=== PATIENT | female | born 1970 | race Caucasian/White ===

== ENCOUNTER 2025-01-16 15:30 | Outpatient (AMB) | payer OTHER, SELFPAY ==
--- NOTE | 2025-01-16 15:32 | A.OFFVIS_ITS ---
VS Expanded 01/16/25 15:53 BP 108/60 Blood Pressure Location Rt brachial Blood Pressure Position Sitting Pulse 73 Pulse Source Pulse Oximeter Temp 96.8 F Temperature Source Temporal Artery Scan Pulse Oximetry 97 Oxygen Delivery Method Room Air Height 5 ft 3.5 in Weight 141 lb 3.2 oz BMI 24.6 Body Fat % 32.2 Body Fat Mass 45.4 Fat Free Mass 95.6 Visceral Fat Rating 7.0 Body Water % 48.0 Body Water Mass 67.6 Muscle Mass/Score 90.8 Basal Metabolic Rate/Score 1,295 Intake Visit Reasons: (OV) Panniculectomy Consult Instrument Lens Generator Required: No Allergies erythromycin base [ERYTHROMYCIN BASE] Allergy (Unknown, Unverified 06/03/20 18:00) GASTRITIS From BUSPAR Allergy (Unknown, Uncoded 06/03/20 18:00) SPACEY From PHENERGAN Allergy (Unknown, Uncoded 06/03/20 18:00) AGITATED Medication List - Last Reconciled 01/16/25 by MARCUS Anguiano atorvastatin 40 mg PO BEDTIME B-complex with vitamin C 1 cap PO DAILY biotin mcg PO celecoxib (Celebrex) 200 mg PO DAILY cetirizine (Zyrtec) 10 mg PO DAILY PRN citalopram 10 mg PO DAILY citalopram 20 mg PO DAILY ferrous sulfate 27 mg PO DAILY hydrochlorothiazide 12.5 mg PO DAILY losartan 50 mg PO BID metformin 1,000 mg PO DAILY multivitamin 1 tab PO DAILY omeprazole 20 mg PO DAILY pregabalin 150 mg PO BID tirzepatide (Mounjaro) 2.5 mg subcut QWEEK HPI Comments Details: 54-year-old female presents to the office today for possible panniculectomy. She has a history of sleeve gastrectomy performed by Dr. Ramon at [facility] on 07/15/2015. She has not seen anybody specifically for bariatric follow-up since 2018. She reports her greatest weight was 217 lb, lowest weight is current weight and this has been stable over the last year. She is concerned about her abdominal pannus. This does cause rashes, worse in the warmer months. She has not been prescribed any specific medications but has treated this with jabq-oah-cmrsliu corn starch. The impact of the excess skin on her ADLs is significant. She has a negative impact with sexual intercourse due to the excess skin. She also requires increased hygiene practices due to the excess skin, requiring showering to sometimes 3 times a day depending upon the weather. She additionally has abdominal discomfort due to the excess skin with exercise such as jogging or jumping. Her ADLs are also affected negatively by way of ill fitting clothing. Weight today is 141.2 with a BMI of 24.6. meal plan: 25 gm tajik yogurt w berries 1/2 sandwich 4 oz chicken and 1 c veg drinking 40 oz water daily exercise plan: PF treadmill 3 d per week, 300-400 shy low impact weight training. [facility] Surgical History (Updated 01/16/25 @ 16:23 by MARCUS Anguiano) Hx of tubal ligation Hx of hysterectomy Hx of foot surgery Hx of shoulder surgery Hx of knee surgery H/O hernia repair S/P gastric sleeve procedure Family History Mother No problems noted. Father No problems noted. Social History Alcohol intake: current Alcohol intake frequency: holidays/special occasions only Patient Tobacco Use Status: Never used Tobacco Physical Exam Const General: cooperative, healthy appearing and no acute distress Orientation/consciousness: patient oriented x3 HEENT Head: Yes normal to inspection Ears: hearing grossly normal bilaterally General nose exam: Normal external nose present Face and sinus: Yes normal facial exam Eyes General: appearance normal, both eyes and all related structures Resp Effort & Inspection: normal respiratory effort Auscultation: clear to auscultation bilaterally Cardio Rate: regular rate Rhythm: regular rhythm Heart sounds: S1 normal heart sound present and S2 normal heart sound present GI Inspection: Yes normal to inspection, No distended and Yes obesity Palpation (GI): Soft to palpation, nontender and no guarding Auscultation: normal bowel sounds Skin Other: Grade 2 pannus of the abdomen General skin exam: no rashes or lesions noted Neuro General: patient oriented x3 Extrem General: No edema Psych Appearance: grossly normal Mental Status: mental status grossly normal Speech and movement: Normal speech and movement present Affect: normal affect Attitude: cooperative Assessment & Plan Assessment & Plan (1) Excess skin: Code(s): L98.7 - Excessive and redundant skin and subcutaneous tissue Category: Medical Plan: Pleasant 54-year-old female with grade 2 pannus of the abdomen secondary to excessive weight loss after sleeve gastrectomy performed in June 2015. She has lost 75.8 lb or 34.9% total body weight loss. As a result she has excess skin of the abdomen negatively impacting her ADLs as well as requiring excess hygiene, difficulty with clothing fitting. She has had intermittent rashes in the past, worse with warmer weather. These have been treated with axyd-vwb-xmrgnik corn starch although there has been recurrence. While she does not have a rash today, she will alert the office if she does get a rash so that we may treat it accordingly. We will schedule follow-up appointment in March, advised to call sooner should she have any issues or concerns. (2) S/P laparoscopic sleeve gastrectomy: Code(s): Z98.84 - Bariatric surgery status Category: Surgical Plan: Patient is following a meal plan that she has been doing for several years. 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 She has been at a stable weight per her report for the last year. She will continue the meal plan as she is doing and recommendation was for increasing exercise to 5 days per week. We will have her follow-up in March as above.
--- OUTSIDE RECORDS SUMMARY | 2025-01-16 15:33 | XMS_ITS ---
[facility] Name [facility] Organization Unknown Care Team Organization Name Specialty Phone Email Start Date End [facility] Jewel Ferrell Primary Care 11/02/2023
--- OUTSIDE RECORDS SUMMARY | 2025-01-16 15:33 | XMS_ITS | Encounter Summary ---
Author Organization [facility] Address [address] [place] [address] Care Team Providers Care Negative Turner Apprentice Name Role Phone Jewel Ferrell MD Primary Care Provider Un available Encounter Details Date Type Department Care Team (Late st Contact Info) Description 11/02/2023 Scanned Document [facility] Physicians Department of Physiatry [place] [address] [place] [address] Magda Yabrra MD [address] [place] [address] Social History Tobacco Use Types Packs/Day Years Used Date Smoking Tobacco: Never Assessed Comments Unknown Sex and Gender Information Value Date Recorded Sex Assigned at Female 11/23/2023 10:36 AM EST Legal Sex Female 12:05 PM EDT Gender Identity Female 11/23/2023 10:36 AM EST Sexual Orientation Not on file documented as of this encounter Plan of Treatment Not on file documented as of this encounter Visit Diagnoses Not on filedocumented in this encounter Care Teams Negative Turner Apprentice Relationship Specialty Start Date End Date Jewel Ferrell MD PCP - General documented as of this encounter
--- OUTSIDE RECORDS SUMMARY | 2025-01-16 15:33 | XMS_ITS | Encounter Summary ---
Author Organization [facility] Address [address] [place] [address] Care Team Providers Care Watch Manufacturing Supervisor Name Role Phone Jewel Ferrell MD Primary Care Provider Un available Encounter Details Date Type Department Care Team (Late st Contact Info) Description 11/02/2023 Scanned Document [facility] Phys[facility] Department of Physiatry [place] [address] [place] [address] Magda Ybarra MD [address] [place] [address] Social History Tobacco Use Types Packs/Day Years [...] on filedocumented in this encounter Care Teams Watch Manufacturing Supervisor Relationship Specialty Start Date End Date Jewel Ferrell MD PCP - General documented as of this encounter
--- OUTSIDE RECORDS SUMMARY | 2025-01-16 15:33 | XMS_ITS | Encounter Summary ---
Author Organization [facility] Address [address] [place] [address] Care Team Providers Care Auto Motor Mechanic Name Role Phone Jewel Ferrell MD Primary Care Provider Un available Encounter Details Date Type Department Care Team (Late st Contact Info) Description 11/02/2023 Scanned Document [facility] Physicians Department of Physiatry [place] [address] [place] [address] Magda Ybarra MD [address] [place] [address] Social History Tobacco Use Types Packs/Day Years [...] on filedocumented in this encounter Care Teams Auto Motor Mechanic Relationship Specialty Start Date End Date Jewel Ferrell MD PCP - General documented as of this encounter
--- OUTSIDE RECORDS SUMMARY | 2025-01-16 15:33 | XMS_ITS | Clinical Summary ---
Author Organization [facility] Address [address] [place] [address] Care Team Providers Care Lithographic Platemaker Name Role Phone Jewel Ferrell MD Primary Care Provider Un available Social History Tobacco Use Types Packs/Day Years Used Date Smoking Tobacco: Never Assessed Comments Unknown Sex and Gender Information Value Date Recorded Sex Assigned at Female 11/23/2023 10:36 AM EST Legal Sex Female 12:05 PM EDT Gender Identity Female 11/23/2023 10:36 AM EST Sexual Orientation Not on file Plan of Treatment Health Maintenance Due Date Last Done Comments Hepatitis C Virus Screening 1968 HIV Screening 1981 DTaP/Tdap/Td Vaccines (1 - Tdap) 1987 Hepatitis B Vaccines (1 of 3 - 19+ 3-dose series) 10/1986 Pneumococcal Vaccines 50+ (1 of 1 - PCV) 2018 Zoster (Shingles) Vaccine (1 of 2) 2018 COVID-19 Vaccine ( season) 2024 Care Teams Lithographic Platemaker Relationship Specialty Start Date End Date Jewel Ferrell MD PCP - General
--- OUTSIDE RECORDS SUMMARY | 2025-01-16 15:33 | XMS_ITS | Clinical Summary ---
Author Organization [facility] Address [address] [place] [address] Phone Care Team Providers Care Financial Service Representative Name Role Phone Jewel Ferrell MD Primary Care Provider [phone] Allergies Active Allergy Reactions Criticality Noted Date Comments Buspirone Hcl 06/08/2005 confusion Erythromycin GI intolerance 03/27/2008 gastritis Fludrocortisone 05/05/2024 Hydrocodone 11/10/2016 vomiting Lisinopril Other Medium 07/31/2008 cough Morphine 11/10/2016 nausea Medications celecoxib (CeleBREX) 200 mg capsule Take 1 capsule by mouth once daily 90 capsule 1 024 Active biotin 5 mg capsule Take 1 capsule (5 mg total) by mouth 1 (one) time each day. Active cetirizine (ZyrTEC) 10 mg chewable tablet Chew 1 tablet (10 mg total) daily. Active cholecalciferol (VITAMIN D-3) 50 mcg (2,000 unit) capsule Active citalopram (CeleXA) 20 mg tablet Take 1 tablet (20 mg total) by mouth 1 (one) time each day. Take 1 tab daily along with citalopram 10 mg for a total of 30 mg daily 90 tablet 1 025 Active citalopram (CeleXA) 10 mg tablet Take 1 tablet (10 mg total) by mouth 1 (one) time each day. Take 1 tab daily along with citalopram 20 mg for a total of 30 mg daily 90 each 025 Active atorvastatin (LIPITOR) 40 mg tablet Take 1 tablet (40 mg total) by mouth 1 (one) time each day. 90 tablet 1 Active metFORMIN XR (GLUCOPHAGE-XR) 500 mg 24 hr tablet Take 1 tablet (500 mg total) by mouth 2 (two) times a day with meals. Do not crush, chew, or split. 025 Active ferrous sulfate ER (SLOW IRON) 140 mg (45 mg iron) tablet Take 1 tablet (45 mg total) by mouth 1 (one) time each day with breakfast. Do not crush, chew, or split. 025 Active omeprazole (PriLOSEC) [address] capsule Take 1 capsule (20 mg total) by mouth 1 (one) time each day. Do not crush or chew. 90 each 1 025 Active pregabalin (LYRICA) 150 mg capsule Take 1 capsule (150 mg total) by mouth 2 (two) times a day. Max Daily Amount: 300 mg 180 each 025 Active losartan (COZAAR) 50 mg tablet Take 1 tablet by mouth twice daily 180 tablet 1 025 Active hydroCHLOROthiazi de (MICROZIDE) 12.5 mg capsule Take 1 capsule by mouth once daily 90 capsule 1 025 Active Mounjaro 2.5 mg/0.5 mL injectionIndicati ons:Diabetes mellitus type 2 with neurological manifestations (CMS/HCC V24, CMS/HCC V28) INJECT 1 PEN (2.5 MG TOTAL) SUBCUTANEOUSLY ONCE EVERY 7 DAYS 2 mL 025 Active FreeStyle David 3 Plus Sensor deviceIndications :Diabetes mellitus type 2 with neurological manifestations (CMS/HCC V24, CMS/HCC V28) USE FOR CONTINUOUS BLOOD GLUCOSE MONITORING DAILY 6 each 025 Active hydroCHLOROthiazi de (MICROZIDE) 12.5 mg capsule Take 1 capsule by mouth once daily 90 capsule 024 04/07/ 2025 Discontinued blood-glucose sensor (FreeStyle David 3 Plus Sensor) deviceIndications :Diabetes mellitus type 2 with neurological manifestations ([facility] V24, [facility] V28) 1 EA continuously. Box = Kit = EA 6 each 025 2024 Discontinued tirzepatide (Mounjaro) 2.5 mg/0.5 mL injectionIndicati ons:Diabetes mellitus type 2 with neurological manifestations ([facility] V24, [facility] V28) Inject 0.5 mL (2.5 mg total) under the skin every 7 (seven) days. 2 mL 025 2024 Discontinued Active Problems Problem Noted Date Diagnosed Date Cervical spondylosis with myelopathy and radicul opathy 07/26/2022 COVID-19 03/08/2021 Overview (07/09/2024): 03/07/21 Snoring 08/11/2019 Overview (07/09/2024): 07/2019 Home Sleep Study did not reveal sleep apnea or nocturnal hypoxia. HPV in female 01/16/2018 Overview (07/09/2024): High risk HPV positive on paps in 2016 and 2017. 16 and 18 always negative. Colpo 01/15/18 with biopsy at 12:00 NEGATIVE Diabetes mellitus type 2 wit h neurological manifestations ([facility] V24, [facility] V28) 08/29/2017 Pannus, abdominal 08/24/2017 Neuropathy 03/27/2016 Ovarian cyst 12/31/2014 Major depression in partial remission ([facility] V 24) 05/05/2014 Sleep apnea 05/23/2013 Overview (07/09/2024): mild overall, severe in REM with some uriah hypoventilation improved after weight loss Microalbuminuria 02/02/2011 Vitamin D deficiency 04/14/2010 Dysplastic nevi 07/09/2009 Hemorrhage of gastrointestinal tract 05/31/2007 Overview (07/09/2024): chronic scant hematochezia. Negative colonoscopy 02/07/2008, no colon cancer screening needed for 10 years. IMO update Hearing loss 07/09/2006 Overview (07/09/2024): Mild, Dr Zhang [place] update Palpitations 07/09/2006 Overview (07/09/2024): On Beta Tutu Mixed hyperlipidemia 05/13/2006 Esophageal reflux 12/22/2005 Overview (07/09/2024): Normal EGD and duodenal bx 08/19/2007. Essential hypertension, benign 12/22/2005 Encounters Date Type Department Care Team Description 12/08/2024 4:30 PM EDT Telemedicine Internal Medicine - [address] [phone] Jewel Ferrell MD Diabetes mellitus type 2 with neurological manifestations (CMS/HCC V24, CMS/HCC V28) (Primary Dx); Gastroesophageal reflux disease without esophagitis 12/02/2024 4:00 PM EDT Consult Endocrinology - [address] [phone] Caridad Gongora PA Diabetes mellitus type 2 with neurological manifestations (CMS/HCC V24, CMS/HCC V28) (Primary Dx); Microalbuminuria; Mixed hyperlipidemia 12/02/2024 Telephone Endocrinology - [address] [phone] Caridad Gongora PA 11/15/2024 11:00 AM EST - 11/15/2024 11:59 PM EST Hospital Encounter Radiology Department - [address] [phone] Encounter for screening mammogram for breast cancer Discharge Disposition: Home or Self Care 11/03/2024 9:45 AM EST Office Visit [facility] Hematology Oncology [address] [place] [phone] Sandy Ashford PA Anemia, unspecified type (Primary Dx); S/P gastric sleeve procedure; Low serum vitamin B12 10/31/2024 Telephone [facility] Hematology Oncology [address] [place] [address] Sandy Ashford PA from Last 3 Months Immunizations Name Administration Dates Next Due Influenza Quadravalent, MDCK , 0.5ml, preservative free (Flucelvax) 6mo and older 06/23/2021,06/06/2019 Influenza, Unspecified 06/13/2023 Moderna (age 6mo & older) Bi valent, COVID-19, 0.5 mL or 0.25 mL dosage 06/21/2022 Moderna (ages 6-11 primary) COVID-19, 0.5 mL dosage 07/21/2021 Moderna SARS-CoV-2 COVID-19, mRNA, LNP-S, preservative free 07/21/2021,10/21/2020,09/23/2020 Mumps 02/08/2010 Pneumococcal polysaccharide 23 valent (Pneumovax 23) 2yo and older 12/19/2013 Td Tetanus diptheria (Tdvax) 7yo and older 11/19 Tdap Tetanus diptheria acell ular pertussis (Boostrix; Adacel) 7yo and older 11/19/2008 Zoster Live 08/28/2021,06/03/2021 Zoster recombinant (Shingrix ) 19yo and older 08/28/2021,06/03/2021 Surgical History Surgery Date Site/Laterality Comments OTHER SURGICAL HISTORY 1972 PROCEDURE: [place] RPR EPIGASTRIC HERNIA REDUCIBLE SPX TUBAL LIGATION 1992 PROCEDURE: HISTORICAL TUBAL LIGATION MOLE REMOVAL 05/2014 PROCEDURE: HISTORICAL MOLE (REMOVAL OF); COMMENT: pilomatrixoma forehead COLONOSCOPY 02/07/2008 PROCEDURE: HISTORICAL COLONOSCOPY; COMMENT: negative examination. CARPAL TUNNEL RELEASE PROCEDURE: HISTORICAL CARPAL TUNNEL REL; COMMENT: rt side dr sullivan SHOULDER SURGERY 2008 Right PROCEDURE: HISTORICAL SHOULDER SURGERY; COMMENT: shoulder arthroscopy on right dr [id number] FOOT SURGERY rt foot surgery PROCEDURE: HISTORICAL FOOT SURGERY; COMMENT: osteochondroma dr flowers OTHER SURGICAL HISTORY 2005 PROCEDURE: HISTORICAL SUPRACERVICAL HYSTERECTOMY W/O BSO; COMMENT: cervix and ovaries are still in ABDOMINAL SURGERY 2014 PROCEDURE: HISTORICAL ABDOMINAL SURGERY; COMMENT: gastric sleeve UPPER GASTROINTESTINAL ENDOSCOPY 08/19/2007 PROCEDURE: [place] UPPER GI ENDOSCOPY PERFORMED; COMMENT: EGD & duodenal bx wnl COLONOSCOPY 10/22/2019 PROCEDURE: HISTORICAL COLONOSCOPY; COMMENT: Normal OTHER SURGICAL HISTORY 2015 Left PROCEDURE: HISTORY OTHER; COMMENT: left knee arthroscopy OTHER SURGICAL HISTORY PROCEDURE: HISTORY OTHER; COMMENT: C3-C5 laminoplasty in [place] NECK SURGERY 2021 PROCEDURE: HISTORICAL NECK SURGERY; COMMENT: post cervical laminoplasty c-4- c-6 HYSTERECTOMY Medical History Medical History Date Comments Diabetes mellitus type 2 wit h neurological manifestations (CMS/HCC V24, CMS/HCC V28) 08/29/2017 DX:Diabetes mellitus type 2 with neurological manifestations (HCC) Dysplastic nevi 07/09/2009 DX:Dysplastic ne vi Esophageal reflux 12/22/2005 DX:Esophageal reflux; COMMENT: Normal EGD and duodenal bx 08/19/2007. Essential hypertension, benign 12/22/2005 D X:Essential hypertension, benign Hearing loss 07/09/2006 DX:Hearing loss; COMMENT: Mild, Dr Lee O update Hemorrhage of gastrointestinal tract 05/31/2007 DX:Hemorrhage of gastrointestinal tract; COMMENT: chronic scant hematochezia. Negative colonoscopy 02/07/2008, no colon cancer screening needed for 10 years. IMO update History of carpal tunnel syndrome 02/11/2010 DX:History of carpal tunnel syndrome; COMMENT: Rt surgery 2009 Dr Cee History of gastric restricti ve surgery 08/29/2017 DX:History of gastric restri ctive surgery; COMMENT: Gastric sleeve placed 2014 History of kidney stones 04/17/2007 DX:Hist ory of kidney stones; COMMENT: dx 03/2007, passed on own, saw urology Other allergy, other than to medicinal agents 07/09/2006 DX:Other allergy, other than to medicinal agents; COMMENT: Did get allergy shots in past dr lee Mixed hyperlipidemia 05/13/2006 DX:Mixed hy perlipidemia Major depression in partial remission ([facility]/HCC V24) 05/05/2014 DX:Major depression in parti al remission ([facility]) Microalbuminuria 02/02/2011 DX:Microalbumin uria Neuropathy 03/27/2016 DX:Neuropathy Ovarian cyst 12/31/2014 DX:Ovarian cyst Palpitations 07/09/2006 DX:Palpitations; COMMENT: On Beta Tutu Pannus, abdominal 08/24/2017 DX:Pannus, abd ominal Sleep apnea 05/23/2013 DX:Sleep apnea; COMMENT: mild overall, severe in REM with some uriah hypoventilation Type 2 diabetes mellitus wit h renal manifestations (CMS/HCC V24, CMS/HCC V28) 12/22/2005 DX:Type 2 diabetes mellitus with renal manifestations (HCC) Vitamin D deficiency 04/14/2010 DX:Vitamin D deficiency Covid-19 03/08/2021 DX:COVID-19 Family History Medical History Relation Name Comments Hyperlipidemia Father Heart attack Maternal Grandfather Heart attack Maternal Grandmother stroke Hypertension Mother Colon cancer Paternal Grandfather age > 6 0 Breast cancer Neg Hx Relation Name Status Comments Father Alive Maternal Grandfather Maternal Grandmother Mother Alive HTN ASTHMA copd cad NO FULL SIBS Paternal Grandfather Social History Tobacco Use Types Packs/Day Years Used Date Smoking Tobacco: Former Cigarettes Q uit: 09/17/1991 Smokeless Tobacco: Never Tobacco Cessation:Counseling Given: Not Answered Alcohol Use Standard Drinks/Week Comments Yes 0 (1 standard drink = 0.6 oz pur e alcohol) Housing Instability Answer Date Recorde d Are you worried that in the next 2 months you may not have stable housing? No 12/08/2024 Food Access & Nutrition Answer Date Rec orded Do you have access to a vari ety of food including fruits and vegetables? Yes 12/08/2024 Access to Healthcare Answer Date Record ed Within the last 3 months, ho w many times did you visit the emergency department for your medical care? 0 12/08/2024 Health Literacy Answer Date Recorded How often do you need to hav e someone help you when you read instructions, pamphlets, or other written material from your doctor or pharmacy? Never 12/08/2024 Caregiver: How often do you need to have someone help you when you read instructions, pamphlets, or other written material from your doctor or pharmacy? Not on file 12/08/2024 Financial Risk Answer Date Recorded How hard is it for you to pa y for the very basics like food, housing, medical care, and air conditioning / heating? Not very hard 12/08/2024 Transportation Answer Date Recorded Has the lack of transportati on kept you from meetings, work, or from getting things needed for daily living? No Has the lack of transportati on kept you from medical appointments or from getting medications? No 12/08/2024 Social Isolation Answer Date Recorded How often do you feel lonely or isolated from those around you? Sometimes 12/08/2024 Food Risk Answer Date Recorded Within the past 12 months we worried whether our food would run out before we got money to buy more. Never true 12/08/2024 Within the past 12 months th e food we bought just didn't last and we didn't have money to get more. Never true 12/08/2024 Dependent Care Answer Date Recorded Do you need help finding or paying for care for your loved ones. For example, child day care center worker or elderly care for an older adult? No 12/08/2024 Education Answer Date Recorded Do you think completing more education or training, like finishing a GED, going to college, or learning a trade, would be helpful for you? No 12/08/2024 Employment and Income Answer Date Recor ded During the last four weeks, have you been actively looking for work? Yes 12/08/2024 Living Situation Answer Date Recorded What is your living situation? 0 12/08/2024 Comments No Sex and Gender Information Value Date Recorded Sex Assigned at Female 08/12/2024 11:55 AM EST Legal Sex Female 8:42 PM EST Gender Identity Female 08/12/2024 11:55 AM EST Sexual Orientation Straight 08/12/2024 11 :55 AM EST Obstetrics History Para Term AB IAB SAB Ectopic Multiple Livin g Live Births 2 2 2 2 Date Outcome GA Total Labor Labor/2nd/3rd Weight Sex Type Anes PTL Breana A1 A5 Name Clin Term Term Last Filed Vital Signs Vital Sign Reading Time Taken Comments Blood Pressure 108/78 12/02/2024 4:22 PM EDT Pulse 67 12/02/2024 4:22 PM EDT Temperature 35.7 ??C (96.2 ??F) 12/02/2024 4:22 PM ED T Respiratory Rate 14 12/02/2024 4:22 PM EDT Oxygen Saturation 98% 12/02/2024 4:22 PM EDT Inhaled Oxygen Concentration - - Weight 67.8 kg (149 lb 6.4 oz) 12/02/2024 4:22 P M EDT Height 161.3 cm (5' 3.5 ) 12/02/2024 4:22 PM EDT Body Mass Index 26.05 12/02/2024 4:22 PM EDT Plan of Treatment Upcoming Encounters Date Type Department Care Team (Late st Contact Info) Description 03/13/2025 7:30 AM EDT Office Visit Endocrinology - [address] [phone] Caridad Gongora PA [address] [place] [phone] 04/10/2025 1:30 PM EDT Office Visit Obstetrics & Gynecology - [address] [phone] Obi Dominga, CNM [address] [place] [address] 04/30/2025 3:30 PM EDT Office Visit Internal Medicine - [address] [phone] Jewel Ferrell MD [address] [place] [address] 05/04/2025 3:15 PM EDT Office Visit [facility] Hematology Oncology [address] [place] [phone] Sandy Ashford PA [address] [place] [phone] Health Maintenance Due Date Last Done Comments Diabetes: Annual Foot Exam 1978 Hepatitis B Vaccines (1 of 3 - 19+ 3-dose series) 1987 HIV Screening 10/18/2019 Hepatitis C Screening 10/18/2019 COVID-19 Vaccine (8 - Moderna risk ) 03/18/2025 09/18/2024, 06/21/2022, 01/24/2022, Additional history exists Diabetes: Blood Sugar Control Test (HGBA1C) 03/31/2025 10/01/2024, 05/01/2024, 05/01/2024, Additional history exists Cervical Cancer Screening: Pap Smear 09/15/2025 09/15/2022, 11/20/2018, 11/14/2017 Diabetes: Annual Urine Albumin-Creatinine Ratio (uACR) 10/01/2025 10/01/2024 Diabetes: Annual Retina Eye Exam 10/06/2025 10/06/2024 Diabetes: Annual GFR (Glomerular Filtration Rate) 11/03/2025 11/03/2024, 10/01/2024, 05/01/2024, Additional history exists Hypertension/CHF/CAD Annual BMP Blood Test 11/03/2025 11/03/2024, 10/01/2024, 05/01/2024, Additional history exists Depression Screening 12/08/2025 12/08/2024 Social Influencers of Health Screening 12/08/2025 12/08/2024 Breast Cancer Screening 11/15/2026 11/16/19, 10/25/2023, 10/23/2022, Additional history exists DTaP,Tdap,and Td Vaccines (3 - Td or Tdap) 11/19/2028 11/19/2018, 11/19/2008 Cholesterol Screening (Lipid Panel) 01/30/2029 01/31/2024, 01/31/2024 Colorectal Cancer Screening: Colonoscopy 10/22/2029 10/22/2019 Zoster Vaccines Completed 08/28/2021, 08/17, 06/03/2021, Additional history exists Influenza Vaccine Completed 06/06/2024, , 06/20/2022, Additional history exists Pneumococcal Vaccine: 50+ Years Completed 09/18/2024, 12/19/2013 Pneumococcal Vaccine: Pediatrics (0 to 5 Years) and At-Risk Patients (6 to 64 Years) Completed 09/18/2024, 12/19/2013 HIB Vaccines Aged Out No longer eligi ble based on patient's age to complete this topic HPV Vaccines Aged Out No longer eligi ble based on patient's age to complete this topic Hepatitis A Vaccines Aged Out No long er eligible based on patient's age to complete this topic IPV Vaccines Aged Out No longer eligi ble based on patient's age to complete this topic MMR Vaccines Aged Out No longer eligi ble based on patient's age to complete this topic Meningococcal ACWY Vaccine Aged Out N o longer eligible based on patient's age to complete this topic Meningococcal B Vaccine Aged Out No l onger eligible based on patient's age to complete this topic RSV Immunization Patients Under 20 months Aged Out No longer eligible based on patient's age to complete this topic Varicella Vaccines Aged Out No longer eligible based on patient's age to complete this topic Procedures Procedure Name Priority Date/Time Associated Diagnosis Comments MG MAMMO DIGITAL SCREENING W BROCK BILAT Routine 11/15/2024 11:25 AM EST Encounter for screening mammogram for breast cancer [place] PROTEIN ELECTROPHORETIC FRACTIONATION & QUANTITATION SERUM Routine 11/03/2024 10:22 AM EST Anemia, unspecified type AZ IMMUNOFIXATION ELECTROPHORESIS SERUM Routine 11/03/2024 10:22 AM EST Anemia, unspecified type PROTEIN, TOTAL Routine 11/03/2024 10:22 AM EST Anemia, unspecified type IMMUNOGLOBULINS IGG, IGA, IGM Routine 11/03/2024 10:22 AM EST Anemia, unspecified type IMMUNOFIXATION ELECTROPHORESIS Routine 11/03/2024 10:22 AM EST Anemia, unspecified type COMPREHENSIVE METABOLIC PANEL Routine 11/03/2024 10:22 AM EST Anemia, unspecified type RETICULOCYTE COUNT Routine 11/03/2024 10 :22 AM EST Anemia, unspecified type PROTEIN ELECTROPHORESIS, SERUM Routine 11/03/2024 10:22 AM EST Anemia, unspecified type LACTATE DEHYDROGENASE Routine 11/03/2024 10:22 AM EST Anemia, unspecified type KAPPA-LAMBDA QUANTITATIVE FREE LIGHT CHAINS Routine 11/03/2024 10:22 AM EST Anemia, unspecified type IMMUNOFIXATION ELECTROPHORESIS Routine 11/03/2024 10:22 AM EST Anemia, unspecified type HAPTOGLOBIN Routine 11/03/2024 10:22 AM EST Anemia, unspecified type ERYTHROPOIETIN Routine 11/03/2024 10:22 AM EST Anemia, unspecified type ..MISCELLANEOUS REFERENCE LAB TEST 11/03/2024 CBC WITH AUTO DIFFERENTIAL Routine 10/31/2024 12:15 PM EST Iron deficiency anemia, unspecified iron deficiency anemia type VITAMIN B12 AND FOLATE Routine 12:15 PM EST Iron deficiency anemia, unspecified iron deficiency anemia type IRON AND TIBC Routine 10/31/2024 12:15 PM EST Iron deficiency anemia, unspecified iron deficiency anemia type FERRITIN Routine 10/31/2024 12:15 PM EST Iron deficiency anemia, unspecified iron deficiency anemia type CBC AND DIFFERENTIAL Routine 10/31/2024 12:15 PM EST Iron deficiency anemia, unspecified iron deficiency anemia type EXTERNAL DIABETIC RETINA EYE EXAM 10/06/2024 MICROALBUMIN CREATININE URINE RATIO Routine 10/01/2024 8:42 AM EST Diabetes mellitus (CMS/HCC V24, CMS/[facility] V28) HEMOGLOBIN A1C Routine 10/01/2024 8:42 AM EST Diabetes mellitus (CMS/HCC V24, CMS/[facility] V28) LIPID PANEL Routine 01/31/2024 PAP SMEAR Routine 09/15/2022 HM COLONOSCOPY Routine 10/22/2019 from Last 3 Months or Most Recently Relevant to Health Maintenance Results * MG Mammo Digital Screening w Brock bilat (11/15/2024 11:25 AM EST) Anatomical Region Laterality Modality Breast Bilateral Mammography 11/17/2024 5:16 PM EST Impressions 11/17/2024 5:19 PM EST 1. No mammographic evidence of malignancy 2. Scattered fibroglandular tissue BI-RADS CATEGORY: 2 - BENIGN RECOMMENDATION: Screening bilateral mammogram is recommended in 1 year. Mammo Location: [facility], [address] [place] [address], [id number], . -------- FINAL REPORT -------- Dictated By: Srikanth Louis Dictated Date: 11/17/2024 17:16 ET Assigned Physician: Srikanth Louis Reviewed and Electronically Signed By: Srikanth Louis Signed Date: 11/17/2024 17:19 ET Workstation ID: [id number] Transcribed By: Self Edit Transcribed Date: 11/17/2024 17:16 ET Narrative 11/17/2024 5:19 PM EST A BILATERAL DIGITAL 3D SCREENING MAMMOGRAPHY HISTORY: Routine screening. ??No family history of breast cancer. COMPARISON: Multiple priors dating back to 10/12/2020 Technique: Bilateral full field digital mammography (3D) was performed using standard CC and MLO projections CAD ??was used to evaluate this mammogram. FINDINGS: Right: No suspicious masses, groups of microcalcification or areas of architectural distortion identified. Stable typically benign parenchymal asymmetries. Left: No suspicious masses, groups of microcalcification or areas of architectural distortion identified. Stable typically benign parenchymal asymmetries. BREAST DENSITY: B - There are scattered areas of fibroglandular density. Procedure Note rSikanth Louis MD - 11/17/2024 A BILATERAL DIGITAL 3D SCREENING MAMMOGRAPHY HISTORY: Routine screening. No family history of breast cancer. COMPARISON: Multiple priors dating back to 10/12/2020 Technique: Bilateral full field digital mammography (3D) was performedusing standard CC and MLO projections CAD was used to evaluate this mammogram. FINDINGS: Right: No suspicious masses, groups of microcalcification or areas ofarchitectural distortion identified. Stable typically benign parenchymalasymmetries. Left: No suspicious masses, groups of microcalcification or areas ofarchitectural distortion identified. Stable typically benign parenchymalasymmetries. BREAST DENSITY: B - There are scattered areas of fibroglandular density. IMPRESSION: 1. No mammographic evidence of malignancy 2. Scattered fibroglandular tissue BI-RADS CATEGORY: 2 - BENIGN RECOMMENDATION: Screening bilateral mammogram is recommended in 1 year. Mammo Location: [facility], [address] [place] [address], [id number], . -------- FINAL REPORT -------- Dictated By: Srikanth Louis Dictated Date: 11/17/2024 17:16 ET Assigned Physician: Srikanth Louis Reviewed and Electronically Signed By: Srikanth Louis Signed Date: 11/17/2024 17:19 ET Workstation ID: [id number] Transcribed By: Self Edit Transcribed Date: 11/17/2024 17:16 ET us Dominga Crocker CN IMG BI PROCEDURES Final Resul t * Pathologist Review Immunofixation (11/03/2024 10:22 AM EST) Pathologist Interpretation Gaye Stephens MD 11/06/2024 2:08 PM EST [facility] Blood Venous blood specimen / Unknown Venipuncture / Unknown 11/03/2024 10:22 AM EST 11/03/2024 11:21 AM EST Sandy VELAZQUEZ LAB BLOOD ORDERABLES Final Re sult Performing Organization Address [facility]/ZIP Co de Phone Number [facility] [address] [place] [address], * PATHOLOGIST REVIEW PROTEIN ELECTROPHORESIS (11/03/2024 10:22 AM EST) Pathologist Interpretation Gaye Stephens MD 11/07/2024 2:18 PM EST [facility] Blood Venous blood specimen / Unknown Venipuncture / Unknown 11/03/2024 10:22 AM EST 11/03/2024 11:21 AM EST Sandy VELAZQUEZ LAB BLOOD ORDERABLES Final Re sult [facility] [address] [place] [address], [place] [phone] * (ABNORMAL) [place]-lambda free light chains, quantitative (11/03/2024 10:22 AM EST) [place] Free Light Chain 2.52(H) 0.33 - 1.94 mg/dL 11/05/2024 12:14 PM EST [facility] LAB Lambda Free Light Chain 1.95 0.57 - 2.63 mg/dL 11/05/2024 12:14 PM EST [facility] Chetek/Lambda FLC Ratio 1.29 0.26 - 1.65 11/05/2024 12:14 PM EST [facility] Comment: Test performed at [facility], [address] [place], [place] ??[address] ? [phone] Jackie Li MD, PhD - Manager Civil Blood Venous blood specimen / Unknown Venipuncture / Unknown 11/03/2024 10:22 AM EST 11/03/2024 11:27 AM EST Sandy Ashford PA LAB BLOOD ORDERABLES Final Re sult Performing Organization Address City/[facility] Co de Phone Number [facility] [address] [place] [address] * Erythropoietin (11/03/2024 10:22 AM EST) Erythropoietin 11.6 2.6 - 18.5 mIU/mL 11/05/2024 10:28 AM EST [facility] Comment: Test performed at [facility], [address] [place], [place] ??[address] ? [phone] Jackie Li MD, PhD - Manager Civil Blood Venous blood specimen / Unknown Venipuncture / Unknown 11/03/2024 10:22 AM EST 11/03/2024 11:21 AM EST Sandy Masono PA LAB BLOOD ORDERABLES Final Re sult [facility] [address] [place] [address] * Reticulocyte count (11/03/2024 10:22 AM EST) [facility] Retic Ct Abs 0.050 0.030 - 0.090 M/mcL LAB HEMETOLOGY METHOD 11/03/2024 11:35 AM EST [facility] Retic Ct Pct 1.4 0.7 - 1.7 % LAB HEMETOLOGY METHOD 11/03/2024 11:35 AM EST [facility] Immature Retic Fract 12.2 2.3 - 15.9 % LAB HEMETOLOGY METHOD 11/03/2024 11:35 AM EST [facility] Reticulocyte Hemoglobin 35.2 >29.0 pcg LAB HEMETOLOGY METHOD 11/03/2024 11:35 AM EST [facility] Blood Venous blood specimen / Unknown Venipuncture / Unknown 11/03/2024 10:22 AM EST 11/03/2024 11:21 AM EST Sandy VELAZQUEZ LAB BLOOD ORDERABLES Final Re sult Performing Organization Address [facility] Co de Phone Number [facility] [address] [place] [address], [place] [phone] * Immunofixation electrophoresis serum (11/03/2024 10:22 AM EST) [facility] Immunofixation Result, Serum No monoclonal immunoglobulins detected. LAB CHEMISTRY METHOD 11/06/2024 2:08 PM EST [facility] Blood Venous blood specimen / Unknown Venipuncture / Unknown 11/03/2024 10:22 AM EST 11/03/2024 11:21 AM EST Sandy VELAZQUEZ LAB BLOOD ORDERABLES Final Re sult [facility] [address] [place] [address], [place] [phone] * Immunoglobulins IgG, IgA, IgM (11/03/2024 10:22 AM EST) [facility] Total IgG 830 549 - 1,584 mg/dL LAB CHEMISTRY METHOD 11/03/2024 11:53 AM EST [facility] IgA 76 61 - 348 mg/dL LAB CHEMISTRY METHOD 11/03/2024 11:53 AM EST [facility] IgM 70 23 - 259 mg/dL LAB CHEMISTRY METHOD 11/03/2024 11:53 AM EST [facility] Blood Venous blood specimen / Unknown Venipuncture / Unknown 11/03/2024 10:22 AM EST 11/03/2024 11:21 AM EST Sandy VELAZQUEZ LAB BLOOD ORDERABLES Final Re sult Performing Organization Address City/State/[facility] Co de Phone Number [facility] [address] [place] [address], [place] [phone] * Protein electrophoresis, serum (11/03/2024 10:22 AM EST) [facility] Total Protein 6.7 6.0 - 8.0 g/dL LAB CHEMISTRY METHOD 11/07/2024 2:18 PM EST [facility] Albumin, Serum 3.6 2.9 - 4.1 g/dL LAB CHEMISTRY METHOD 11/07/2024 2:18 PM EST [facility] Alpha 1 Globulin (g/dL) 0.2 0.1 - 0.5 g/dL LAB CHEMISTRY METHOD 11/07/2024 2:18 PM EST [facility] Alpha 2 Globulin (g/dL) 1.0 0.7 - 1.5 g/dL LAB CHEMISTRY METHOD 11/07/2024 2:18 PM EST [facility] Beta (g/dL) 0.9 0.7 - 1.5 g/dL LAB CHEMISTRY METHOD 11/07/2024 2:18 PM EST [facility] Gamma Globulin (g/dL) 1.0 0.7 - 1.9 g/dL LAB CHEMISTRY METHOD 11/07/2024 2:18 PM EST [facility] SPEP Interpretation Essentially normal pattern. No M-Alfa seen. LAB CHEMISTRY METHOD 11/07/2024 2:18 PM EST [facility] Blood Venous blood specimen / Unknown Venipuncture / Unknown 11/03/2024 10:22 AM EST 11/03/2024 11:21 AM EST Sandy VELAZQUEZ LAB BLOOD ORDERABLES Final Re sult Performing Organization Address City/[facility]/ZIP Co de Phone Number [facility] [address] [place] [address], [place] [phone] * Protein, total (11/03/2024 10:22 AM EST) Pathologist [facility] Total Protein 6.7 6.0 - 8.0 g/dL LAB CHEMISTRY METHOD 11/03/2024 11:43 AM EST [facility] Blood Venous blood specimen / Unknown Venipuncture / Unknown 11/03/2024 10:22 AM EST 11/03/2024 11:21 AM EST Sandy VELAZQUEZ LAB BLOOD ORDERABLES Final Re sult [facility] [address] [place] [address], [place] [phone] * Lactate dehydrogenase (11/03/2024 10:22 AM EST) Pathologist [facility] LDH 185 120 - 246 unit/L LAB CHEMISTRY METHOD 11/03/2024 11:45 AM EST [facility] Blood Venous blood specimen / Unknown Venipuncture / Unknown 11/03/2024 10:22 AM EST 11/03/2024 11:21 AM EST us Sandy VELAZQUEZ LAB BLOOD ORDERABLES Final Re sult [facility] [address] [place] [address], [place] [phone] * Haptoglobin (11/03/2024 10:22 AM EST) [facility] Haptoglobin 167 16 - 200 mg/dL LAB CHEMISTRY METHOD 11/03/2024 11:45 AM EST [facility] Blood Venous blood specimen / Unknown Venipuncture / Unknown 11/03/2024 10:22 AM EST 11/03/2024 11:21 AM EST Sandy VELAZQUEZ LAB BLOOD ORDERABLES Final Re sult Performing Organization Address City/[facility]/ZIP Co de Phone Number [facility] [address] [place] [address], [place] [phone] * (ABNORMAL) Comprehensive metabolic panel (11/03/2024 10:22 AM EST) [facility] Sodium 141 133 - 145 mmol/L LAB CHEMISTRY METHOD 11/03/2024 11:45 AM [facility] Potassium 3.7 3.5 - 5.5 mmol/L LAB CHEMISTRY METHOD 11/03/2024 11:45 AM [facility] Chloride 104 96 - 110 mmol/L LAB CHEMISTRY METHOD 11/03/2024 11:45 AM [facility] CO2 29 21 - 32 mmol/L LAB CHEMISTRY METHOD 11/03/2024 11:45 AM [facility] Anion Gap 8 3 - 11 LAB CHEMISTRY METHOD 11/03/2024 11:45 AM [facility] Glucose 156(H) 70 - 100 mg/dL LAB CHEMISTRY METHOD 11/03/2024 11:45 AM [facility] BUN 23 5 - 25 mg/dL LAB CHEMISTRY METHOD 11/03/2024 11:45 AM [facility] Creatinine 1.03 0.50 - 1.10 mg/dL LAB CHEMISTRY METHOD 11/03/2024 11:45 AM [facility] eGFR 64 >=60 mL/min/1. 73m2 LAB CHEMISTRY METHOD 11/03/2024 11:45 AM [facility] Comment:Calculation based on the??Chronic Kidney Disease Epidemiology Collaboration (CKD-EPI) equation refit??without adjustment for race. BUN/Creatinine Ratio 22.3 LAB CHEMISTRY METHOD 11/03/2024 11:45 AM [facility] Calcium 9.2 8.5 - 10.5 mg/dL LAB CHEMISTRY METHOD 11/03/2024 11:45 AM [facility] AST (SGOT) 23 10 - 42 unit/L LAB CHEMISTRY METHOD 11/03/2024 11:45 AM [facility] ALT (SGPT) 25 10 - 60 unit/L LAB CHEMISTRY METHOD 11/03/2024 11:45 AM [facility] Alkaline Phosphatase 56 42 - 121 unit/L LAB CHEMISTRY METHOD 11/03/2024 11:45 AM [facility] Total Protein 6.4 6.0 - 8.0 g/dL LAB CHEMISTRY METHOD 11/03/2024 11:45 AM [facility] Albumin 3.8 3.2 - 5.0 g/dL LAB CHEMISTRY METHOD 11/03/2024 11:45 AM [facility] Total Bilirubin 0.5 0.0 - 1.4 mg/dL LAB CHEMISTRY METHOD 11/03/2024 11:45 AM [facility] Blood Venous blood specimen / Unknown Venipuncture / Unknown 11/03/2024 10:22 AM EST 11/03/2024 11:21 AM EST Sandy VELAZQUEZ LAB BLOOD ORDERABLES Final Re sult [facility] [address] [place] [address], [place] [phone] * Miscellaneous reference lab test (11/03/2024) Provider Onbase MD LAB BLOOD ORDERABLES Final Re sult * (ABNORMAL) Vitamin B12 and folate (10/31/2024 12:15 PM EST) [facility] Vitamin B-12 1,441(H) 250 - 900 pcg/mL LAB CHEMISTRY METHOD 10/31/2024 2:41 PM EST [facility] Folate >20.0(H) 2.8 - 17.0 ng/ml LAB CHEMISTRY METHOD 10/31/2024 2:41 PM EST [facility] Blood Venous blood specimen / Unknown Venipuncture / Unknown 10/31/2024 12:15 PM EST 10/31/2024 12:15 PM EST Sandy VELAZUQEZ LAB BLOOD ORDERABLES Final Re sult Performing Organization Address City/[facility]/ZIP Co de Phone Number [facility] [address] [place] [address], [place] [phone] * (ABNORMAL) CBC auto differential (10/31/2024 12:15 PM EST) [facility] WBC 5.7 4.8 - 10.8 K/mcL LAB HEMETOLOGY METHOD 10/31/2024 2:07 PM EST [facility] RBC 3.30(L) 3.80 - 4.80 M/mcL LAB HEMETOLOGY METHOD 10/31/2024 2:07 PM EST [facility] Hemoglobin 10.1(L) 11.5 - 16.0 g/dL LAB HEMETOLOGY METHOD 10/31/2024 2:07 PM EST [facility] Hematocrit 31.6(L) 35.0 - 47.0 % LAB HEMETOLOGY METHOD 10/31/2024 2:07 PM [facility] MCV 96.3 79.0 - 98.0 FL LAB HEMETOLOGY METHOD 10/31/2024 2:07 PM [facility] MCH 30.8 27.0 - 32.0 pcg LAB HEMETOLOGY METHOD 10/31/2024 2:07 PM [facility] MCHC 32.0 32.0 - 37.0 g/dL LAB HEMETOLOGY METHOD 10/31/2024 2:07 PM [facility] RDW 13.1 11.0 - 15.0 % LAB HEMETOLOGY METHOD 10/31/2024 2:07 PM [facility] Platelets 229 130 - 400 K/mcL LAB HEMETOLOGY METHOD 10/31/2024 2:07 PM [facility] MPV 11.0 7.0 - 11.0 FL LAB HEMETOLOGY METHOD 10/31/2024 2:07 PM [facility] NRBC 0.0 <1.0 % LAB HEMETOLOGY METHOD 10/31/2024 2:07 PM [facility] NRBC Absolute 0.00 <0.10 K/mcL LAB HEMETOLOGY METHOD 10/31/2024 2:07 PM [facility] Neutrophils Relative 61.7 % LAB HEMETOLOGY METHOD 10/31/2024 2:07 PM [facility] Lymphocytes Relative 28.0 % LAB HEMETOLOGY METHOD 10/31/2024 2:07 PM [facility] Monocytes Relative 7.5 % LAB HEMETOLOGY METHOD 10/31/2024 2:07 PM [facility] Eosinophils Relative 2.3 % LAB HEMETOLOGY METHOD 10/31/2024 2:07 PM [facility] Basophils Relative 0.3 % LAB HEMETOLOGY METHOD 10/31/2024 2:07 PM EST [facility] Immature Granulocytes Relative 0.2 % LAB HEMETOLOGY METHOD 10/31/2024 2:07 PM [facility] Neutrophils Absolute 3.53 1.50 - 7.00 K/mcL LAB HEMETOLOGY METHOD 10/31/2024 2:07 PM [facility] Lymphocytes Absolute 1.60 1.00 - 5.00 K/mcL LAB HEMETOLOGY METHOD 10/31/2024 2:07 PM [facility] Monocytes Absolute 0.43 0.20 - 1.00 K/mcL LAB HEMETOLOGY METHOD 10/31/2024 2:07 PM [facility] Eosinophils Absolute 0.13 0.00 - 0.50 K/mcL LAB HEMETOLOGY METHOD 10/31/2024 2:07 PM [facility] Basophils Absolute 0.02 0.00 - 0.20 K/mcL LAB HEMETOLOGY METHOD 10/31/2024 2:07 PM [facility] Immature Granulocytes Absolute 0.01 0.00 - 0.03 K/mcL LAB HEMETOLOGY METHOD 10/31/2024 2:07 PM [facility] Blood Venous blood specimen / Unknown Venipuncture / Unknown 10/31/2024 12:15 PM EST 10/31/2024 12:15 PM EST us Sandy VELAZQUEZ LAB BLOOD ORDERABLES Final Re sult [facility] [address] [place] [address], * Iron and TIBC (10/31/2024 12:15 PM EST) [facility] Iron 77 40 - 150 mcg/dL LAB CHEMISTRY METHOD 10/31/2024 2:41 PM EST [facility] TIBC 309 250 - 450 mcg/dL LAB CHEMISTRY METHOD 10/31/2024 2:41 PM EST [facility] Iron Saturation 25 15 - 50 % LAB CHEMISTRY METHOD 10/31/2024 2:41 PM EST [facility] Blood Venous blood specimen / Unknown Venipuncture / Unknown 10/31/2024 12:15 PM EST 10/31/2024 12:15 PM EST us Sandy VELAZQUEZ LAB BLOOD ORDERABLES Final Re sult [facility] [address] [place] [address], [place] [phone] * Ferritin (10/31/2024 12:15 PM EST) Ferritin 54 8 - 252 ng/mL LAB CHEMISTRY METHOD 10/31/2024 2:41 PM EST [facility] Blood Venous blood specimen / Unknown Venipuncture / Unknown 10/31/2024 12:15 PM EST 10/31/2024 12:15 PM EST us Sandy VELAZQUEZ LAB BLOOD ORDERABLES Final Re sult Performing Organization Address City/[facility]/ZIP Co de Phone Number [facility] [address] [place] [address], [place] [phone] * External Diabetic Retina Eye Exam Report (10/06/2024) Anatomical Region Laterality Modality Ultrasound us Provider [facility] IMG US PROCEDURES Final Result * Microalbumin creatinine urine ratio (10/01/2024 8:42 AM EST) Creatinine, Urine 188.0 mg/dL LAB CHEMISTRY METHOD 10/01/2024 10:43 AM EST [facility] Microalb, Ur 6.1 0.0 - 29.0 mg/L LAB CHEMISTRY METHOD 10/01/2024 10:43 AM EST [facility] Microalb/Creat Ratio 3 <30 mg/g creat LAB CHEMISTRY METHOD 10/01/2024 10:43 AM EST [facility] Urine Urine specimen obtained by clean catch procedure / Unknown Non-blood Collection / Unknown 10/01/2024 8:42 AM EST 10/01/2024 8:42 AM EST Jewel Ferrell MD LAB URINE ORDERABLES Codie l Result [facility] [address] [place] [address], [place] [phone] * Hemoglobin A1c (10/01/2024 8:42 AM EST) Hemoglobin A1C 6.4 <6.5 % LAB CHEMISTRY METHOD 10/01/2024 12:30 PM EST [facility] Mean Bld Glu Estim. 137 mg/dL LAB CHEMISTRY METHOD 10/01/2024 12:30 PM EST [facility] Blood Venous blood specimen / Unknown Venipuncture / Unknown 10/01/2024 8:42 AM EST 10/01/2024 8:42 AM EST Jewel Ferrell MD LAB BLOOD ORDERABLES Codie l Result [facility] [address] [place] [address], [place] [phone] * Lipid panel (01/31/2024) LDL/HDL Ratio 3 Triglycerides 145 mg/dL Cholesterol 173 mg/dL HDL 54 mg/dL LDL Cholesterol 90 mg/dL Blood Venous blood specimen / Unknown Jessica Anderson MD LAB BLOOD ORDERABLES Codie l Result * Pap smear (09/15/2022) 09/15/2022 Narrative HISTORICAL TESTING LAB RESULTING AGENCY - 09/26/2022 4:55 PM EST [id number] THINPREP PAP, IMAGED: NEGATIVE FOR SQUAMOUS INTRAEPITHELIAL LESION AND MALIGNANCY . ATROPHY. LAURA TONEY , BRINA(ASCP) (CASE ELECTRONICALLY SIGNED 09 26 2022) RESULT OF APTIMA HIGH RISK HPV ASSAY: HIGH RISK HPV: ??NEGATIVE (SEROTYPES 16,18,31,33,35,39,45,51,52,56,58,59,66,68) COMPLETED ON 2022-09-20 ADEQUACY: SATISFACTORY ENDOCERVICAL/TRANSFORMATION ZONE COMPONENT PRESENT. SOURCE: THINPREP PAP HPV ANY DX: ??REFLEX 16 AND 18, CERVICAL, IMAGED CLINICAL INFORMATION: HPV ANY DIAGNOSIS. MENOPAUSE, PAP HX NEGATIVE 2019, [Z01.419] Dominga Crocker CNM LAB CYTOLOGY ORDERABLES Final Result HISTORICAL TESTING LAB RESULTING AGENCY * Colonoscopy (10/22/2019) Colonoscopy completed Anatomical Region Laterality Modality Other Historical Provider HEALTH MAINTENANCE Final Result from Last 3 Months or Most Recently Relevant to Health Maintenance Insurance [facility] Care Teams Financial Service Representative Relationship Specialty Start Date End Date Jewel Ferrell MD [address] [place] [id number] PCP - General Internal Medicine 10/20/20
--- OUTSIDE RECORDS SUMMARY | 2025-01-16 15:33 | XMS_ITS | Clinical Summary ---
Author Organization [facility] Address [address] [place] [id number] Care Team Providers Care Acoustical Carpenter Name Role Phone Jewel Ferrell MD Primary Care Provider [phone] Allergies Active Allergy Reactions Criticality Noted Date Comments Buspirone Other (See Comments) 05/05/2024 confusion Fludrocortisone 05/05/2024 Morphine Nausea And Vomiting 05/05/2024 Medications Medication Sig Dispensed Refills Start Date End Date Status gabapentin (NEURONTIN) 600 MG tablet Take 1 tablet (600 mg total) by mouth 3 (three) times a day. 0 Active atorvastatin (LIPITOR) tablet 40 mg Take 1 tablet (40 mg total) by mouth daily. 0 Active metFORMIN (GLUCOPHAGE) tablet 500 mg Take 1 tablet (500 mg total) by mouth 2 (two) times a day with meals. 0 Active celecoxib (CeleBREX) 200 MG capsule Take 1 capsule (200 mg total) by mouth daily. 0 Active hydroCHLOROthiazide (MICROZIDE) 12.5 MG capsule Take 1 capsule (12.5 mg total) by mouth daily. 0 Active OMEPRAZOLE PO Take by mouth. 0 Active losartan (COZAAR) tablet 50 mg Take 1 tablet (50 mg total) by mouth daily. 0 Active citalopram (CeleXA) 20 MG tablet Take 1 tablet (20 mg total) by mouth daily. 0 Active Social History Tobacco Use Types Packs/Day Years Used Date Smoking Tobacco: Former Cigarettes Comments:She smoked from age 12 til age 21 Alcohol Use Standard Drinks/Week Comments Yes 0 (1 standard drink = 0.6 oz pur e alcohol) Rare (2x/year) Sex and Gender Information Value Date Recorded Sex Assigned at Female 04/03/2024 2:24 PM EDT Gender Identity Not on file Sexual Orientation Not on file Job Start Date Occupation Industry Not on file Not on file Not on file Last Filed Vital Signs Vital Sign Reading Time Taken Comments Blood Pressure 123/79 05/05/2024 11:57 AM EDT Pulse 80 05/05/2024 11:57 AM EDT Temperature 37 ??C (98.6 ??F) 05/05/2024 11:57 AM EDT Respiratory Rate - - Oxygen Saturation 97% 05/05/2024 11:57 AM EDT Inhaled Oxygen Concentration - - Weight 69.5 kg (153 lb 3.2 oz) 05/05/2024 11:57 AM EDT Height 161.3 cm (5' 3.5 ) 05/05/2024 11:57 AM ED T Body Mass Index 26.71 05/05/2024 11:57 AM EDT Plan of Treatment Health Maintenance Due Date Last Done Comments Hepatitis B Vaccines (1 of 3 - 3-dose series) 1968 Hepatitis C Screening 1968 Depression Screening 1980 Preventative Health Evaluation 1986 Cervical Cancer Screening (Pap Smear) 1989 Colon Cancer Screening (Colonoscopy) 2013 Breast Cancer Screening (Mammogram) 2018 DTap / Tdap / Td (2 - Td or Tdap) 11/19/2018 11/19/2008 COVID-19 Vaccine ( season) 2024 01/24/2022, 07/21/2021, 10/21/2020, Additional history exists Influenza Vaccine (#1) 2024 2, 06/23/2021, 06/30/2020, Additional history exists Pneumococcal Vaccine Aged Out 12/19/2013 No long er eligible based on patient's age to complete this topic Shingrix-Zoster Vaccine Completed 08/28/2021, 06/03 RSV Ped < 20 months Aged Out No longe r eligible based on patient's age to complete this topic Care Teams Acoustical Carpenter Relationship Specialty Start Date End Date Jewel Ferrell MD [address] [place] [phone] PCP - General Internal Medicine 04/03/24
[2025-01-16 15:53] VITALS: BP 108/60; PULSE 73; TEMP 36; O2SAT 97; BMI 24.6
== END 2025-01-16 16:26 | disposition home or self-care (01) ==
LOC: HO.HBS 15:31
PROVIDERS: PCP Internal Medicine; Visit Provider Physician Assistant Surgical
DX: L98.7 Excessive and redundant skin and subcutaneous tissue (principal); Z98.84 Bariatric surgery status
CPT/HCPCS: 99203

== ENCOUNTER → 2025-01-16 15:30 | Outpatient (BNVA) | payer OTHER, SELFPAY | PROVIDERS: PCP Internal Medicine; Visit Provider Physician Assistant Surgical ==